=== PATIENT | male | born 1950 | race Caucasian/White ===

== ENCOUNTER 2023-12-27 09:05 | Day surgery (SDC) | payer MEDICARE, OTHER ==
[2023-12-20 12:59] LABS: Urine Bacteria None Seen /hpf (None Seen)
[2023-12-20 13:11] LABS: Basophils # (auto) 0.1 10 ^3/uL (0-0.2); Basophils % (auto) 0.8 % (0.0-2.0); Eosinophils # (auto) 0.4 10 ^3/uL (0-0.8); Eosinophils % (auto) 5.3 % (0.0-7.0); Hemoglobin 13.2 g/dL (13.5-17.5); Lymphocytes # (auto) 1.7 10 ^3/uL (0.4-5.4); Mean Corpuscular Hemoglobin 31.6 pg (28.0-32.0); Mean Corpuscular Hgb Conc. 33.9 g/dL (32.0-36.0); Mean Corpuscular Volume 93.2 fL (80.0-100.0); Monocytes # (auto) 0.7 10 ^3/uL (0-1.3); Monocytes % (auto) 8.7 % (0.0-12.0); Neutrophils # (auto) 5.3 10 ^3/uL (1.6-8.6); Neutrophils % (auto) 64.2 % (37.0-80.0); Platelet Count (auto) 209 10^3/uL (140-450); Red Blood Cells 4.19 10^6/uL (4.5-5.90); White Blood Cell 8.3 10^3/uL (4.4-10.8)
[2023-12-20 13:24] LABS: Urine Blood 1+ /uL (Negative); Urine Clarity Clear (Clear); Urine Color Light-Yellow (Yellow); Urine Protein, UAD Negative (Negative); Urine Specific Gravity 1.024 (1.001-1.035); Urine Urobilinogen Normal (Negative); Urine WBC 1 /hpf (0 - 3); Urine pH 5.5 (5.0-9.0)
[2023-12-20 13:28] LABS: INR 1.07 (0.9-1.15); Partial Thromboplastin Time 24.8 SEC (24.5-34.5); Prothrombin Time 11.3 sec (9.3-11.8)
[2023-12-20 13:46] LABS: Alanine Aminotransferase 30 U/L (7-40); Albumin 4.5 g/dL (3.2-4.8); Alkaline Phosphatase 69 U/L (46-116); Anion Gap 5 (5-15); Aspartate Aminotransferase 23 U/L (13-40); BUN/Creatinine Ratio 13.1 (10.0-20.0); Blood Urea Nitrogen 14 mg/dL (9-23); Calcium 9.6 mg/dL (8.7-10.4); Carbon Dioxide 29 mmol/L (20-30); Chloride 107 mmol/L (98-107); Glucose 116 mg/dL (74-106); Potassium 5.3 mmol/L (3.5-5.1); Sodium 141 mmol/L (136-145)
[2023-12-20 13:47] LABS: Bilirubin, Total 0.4 mg/dL (0.2-1.0)
[~2023-12-27] VITALS: Ht 180.3 cm; Wt 117.9 kg
[~2023-12-27 09:05] MED LIST: DICL1GEL59 EX; DULA3INJ SC; GABA-1250 PO; METF-490 PO; NAPR-746 PO; PANT40TA2 PO; TELM80TA PO
[2023-12-27] MEDS ORDERED: SUCCINYLCHOLINE CHLORIDE 20 MG/ML 10ML VIAL IV ONE (13:18)
[2023-12-27] MEDS ORDERED: fentaNYL CITRATE 100 MCG/2 ML VL ONE ×2 (13:20→15:11)
[2023-12-27] MEDS: CIPROFLOXACIN 400MG/200ML 200 ML IV ONE (14:03)
[2023-12-27] MEDS ORDERED: ePHEDrine SULFATE 50 MG/ML AMP ONE (14:32)
[2023-12-27] MEDS: IOHEXOL 300 MG/ML 100ML BOTTLE IJ ONE (14:37)
[2023-12-27 16:24] VITALS: O2SAT 96
[2023-12-27 16:25] VITALS: TEMP 98.9
[2023-12-27] MEDS: ONDANSETRON HCL 4 MG/2 ML VIAL IV ONE (17:00)
[2023-12-27] MEDS ORDERED: ONDANSETRON HCL 4 MG/2 ML VIAL ONE (17:03)
[2023-12-27 17:15] VITALS: BP 175/99; PULSE 84; RESP 16; O2SAT 92
== END 2023-12-27 17:30 | disposition home or self-care (01) ==
LOC: SUR 09:05
PROVIDERS: ATTEND Urology
DX: N20.0 Calculus of kidney (principal); I10 Essential (primary) hypertension; E11.9 Type 2 diabetes mellitus without complications; E66.9 Obesity, unspecified; Z68.30 Body mass index [BMI] 30.0-30.9, adult; Z79.84 Long term (current) use of oral hypoglycemic drugs; Z79.899 Other long term (current) drug therapy; Z90.49 Acquired absence of other specified parts of digestive tract; Z98.84 Bariatric surgery status; Z98.890 Other specified postprocedural states
CPT/HCPCS: 36415; 52356; 74018; 80053; 81001; 82360; 82962; 85025; 85610; 85730; 87086; 87088; 87186; 88300; C1769; C2617; J0330; J0744; J2405; J3010; J7030; Q9967; 76000